=== PATIENT | male | born 1985 | race Caucasian/White ===

== ENCOUNTER 2021-12-19 19:43 | Emergency (ER) | payer MEDICAID, SELFPAY ==
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
[2021-12-19] MEDS: clonazePAM 1 MG TABLET 2 MG PO (20:32)
[2021-12-19 20:45] VITALS: BMI 28.3
[2021-12-19 20:51] VITALS: BP 104/72; PULSE 102; RESP 20; TEMP 36.1; O2SAT 97
[2021-12-19 21:02] LABS: COVID-19 Test Negative (Negative)
[2021-12-19 23:58] LABS: Amphetamine Screen Urine Not Detected (Not Detect); Barbiturates, Urine Not Detected (Not Detect); Benzodiazepines Screen Urine Not Detected (Not Detect); Cannabinoid Screen Urine POSITIVE (Not Detect); Cocaine Screen Urine POSITIVE (Not Detect); Fentanyl, urine POSITIVE (Not Detect); Opiate Screen Urine POSITIVE (Not Detect); Phencyclidine Screen Urine Not Detected (Not Detect)
--- NOTE | 2021-12-20 06:27 | PC.NURSE ---
Patient slept through the night, received Klonopin 2 mg po with positive effect, refused EKG and blood work, refused vital assessment, patient was assessed by [facility] disposition detox bed search, motorcoach driver will coordinate bed search, asymptomatic of withdrawal, will continue to monitor
--- NOTE | 2021-12-20 09:50 | MHC.RECOVSUP ---
Recovery Support note: Patient completed intake with [facility] and is accepted for admission at [facility]. This customs entry writer will arrange transportation.
== END 2021-12-20 17:42 | disposition other institution (70) ==
PROVIDERS: Emergency Provider Emergency Medicine
DX: F14.121 Cocaine abuse with intoxication with delirium (principal); R45.1 Restlessness and agitation; R45.850 Homicidal ideations; Z20.822 Contact with and (suspected) exposure to COVID-19; Z79.899 Other long term (current) drug therapy
CPT/HCPCS: 80307; 87635; 99284; 99285

== ENCOUNTER 2021-12-24 23:07 | Emergency (ER) | payer MEDICAID, SELFPAY ==
--- NOTE | ~2021-12-24 | XR_ITS ---
EXAMINATION: XR CHEST CLINICAL INFORMATION: Cough COMPARISON: None TECHNIQUE: Frontal view of the chest was obtained. FINDINGS: Lung volumes are low. Right upper lung airspace opacity. Bronchial wall thickening noted. No pleural effusion or pneumothorax. The cardiomediastinal silhouette is within normal limits. No acute osseous abnormality. XR/XR chest 1V IMPRESSION: Bronchial wall thickening can be seen with a small airways process such as asthma or atypical/viral infection. Right upper lung airspace opacity suspicious for superimposed pneumonia.
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
[2021-12-24 23:19] VITALS: BP 115/58; PULSE 93; RESP 20; TEMP 36.6; O2SAT 96; BMI 28.4
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
[2021-12-24 23:56] LABS: Basophils Absolute Auto 0.1 X10*3/uL (0.0-0.2); Basophils Percent Auto 0.6 % (0-2); Eosinophils Absolute Auto 0.1 X10*3/uL (0.0-0.4); Eosinophils Percent Auto 0.7 % (0-4); Hematocrit 36.4 % (42.0-52.0); Hemoglobin 11.9 g/dl (14.0-18.0); Imm Gran Abs Auto 0.03 X10*3/uL (0.00-0.03); Imm Gran Pct Auto 0.2 % (0.0-0.4); Lymphocytes Absolute Auto 3.4 X10*3/uL (1.2-4.9); Lymphocytes Percent Auto 27.2 % (20-40); MANUAL DIFF FLAG NO; Mean Corpuscular HGB Conc 32.7 g/dl (31.0-36.0); Mean Corpuscular Hemoglobin 27.7 pg (27.0-33.0); Mean Corpuscular Volume 84.7 fL (80.0-98.0); Mean Platelet Volume 8.6 fL (9.4-12.4); Monocytes Absolute Auto 1.3 X10*3/uL (0.1-1.2); Neutrophils Absolute Auto 7.6 x10*3/uL (2.0-8.3); Neutrophils Percent Auto 61.3 % (45-73); Platelet Count 244 X10*3/uL (160-400); Red Cell Distribution Width 14.2 % (11.0-16.0); White Blood Count 12.5 X10*3/uL (4.8-10.8)
[2021-12-25 00:08] LABS: Lactic Acid 1.6 mmol/L (0.5-2.0)
[2021-12-25 00:29] LABS: Erythrocyte Sedimentation Rate 14 MM/HR (0-15)
[2021-12-25 00:33] LABS: Alanine Aminotransferase 23 U/L (0-40); Alkaline Phosphatase 86 U/L (39-117); Anion Gap 11 (12-20); Aspartate Amino Transferase 35 U/L (5-37); Bilirubin Total 0.6 mg/dL (0.0-1.0); Blood Urea Nitrogen 17 mg/dL (9-16); Carbon Dioxide 27 mmol/L (22-29); Chloride 104 mmol/L (96-108); Creatinine Clr Calc Pharmacy 119.4; Estimated Glomerular Filt Rate > 60; Glucose Random 89 mg/dL (60-115); Potassium 4.3 mmol/L (3.3-5.1); Sodium 138 mmol/L (135-145); Total Protein 6.9 g/dL (6.5-8.0)
--- NOTE | 2021-12-25 00:34 | PC.NURSE ---
PT IS UNCOOPERATIVE AT THIS TIME AND REFUSING MEDS. AWARE.
--- NOTE | 2021-12-25 01:35 | PC.NURSE ---
pt returns from CT. Pt is being very rude to staff, not answering questions properly and refusing meds. MD aware. pt is currently sleeping in nad.
[2021-12-25] MEDS: iohexoL 350 MG/ML 100 ML INFUS..BTL 85 ML IV (01:39)
[2021-12-25 02:06] VITALS: BP 106/57; PULSE 72; RESP 18; O2SAT 97
--- NOTE | 2021-12-25 03:54 | PC.NURSE ---
PT UPSET ABOUT BEING DISCHARGED AND STATES I CAN'T WALK AND I'M NOT LEAVING. 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 AWARE.
== END 2021-12-25 04:18 | disposition home or self-care (01) ==
PROVIDERS: Emergency Provider Student in an Organized Health Care Education/Training Program
DX: M54.50 Low back pain, unspecified (principal); J18.9 Pneumonia, unspecified organism; F19.10 Other psychoactive substance abuse, uncomplicated; F17.200 Nicotine dependence, unspecified, uncomplicated
CPT/HCPCS: 36415; 71045; 74177; 80053; 83605; 85025; 85652; 86140; 87040; 96372; 99284; J1885; Q9967